=== PATIENT | male | born 1985 | race Two or more races ===

== ENCOUNTER 2017-09-05 15:23 | Emergency (ER) | payer MEDICAID, OTHER ==
[~2017-09-05] VITALS: Ht 175.3 cm; Wt 99.8 kg
[2017-09-05 16:29] VITALS: BP 133/78
== END 2017-09-05 16:57 | disposition home or self-care (01) ==
LOC: ER 15:32
DX: F41.9 Anxiety disorder, unspecified (principal); Z76.0 Encounter for issue of repeat prescription